=== PATIENT | male | born 1970 | race Caucasian/White ===

== ENCOUNTER 2017-10-12 17:37 | Emergency (ER) | payer BC ==
[~2017-10-12] VITALS: Ht 175.3 cm; Wt 83.9 kg
--- NOTE | 2017-10-12 17:45 | NUR ---
PRESENTS TO ER C/O CHEST PAIN X 30 MIN [employer] WHILE EATING DINNER. RADIATES TO LEFT ARM. A/OX 4. BREATHING EVEN AND UNLABORED. NO SOB. VITALS STABLE. SAFETY AND COMFORT MEASURES IN PLACE. AWAITING MD ORDERS.
--- NOTE | 2017-10-12 18:00 | NUR ---
NEW IV STARTED ON RAC, 20 G. BLOOD DRAWN AND SENT TO LAB.
[2017-10-12] MEDS ORDERED: ASPIRIN 81 MG TAB.CHEW ONE (18:16)
--- NOTE | 2017-10-12 18:20 | NUR ---
LAB AT BEDSIDE FOR BLOOD DRAW
[2017-10-12 18:24] LABS: BASOPHILS % (AUTO) 0.5 % (0.0-2.0); EOSINOPHILS # (AUTO) 0.4 /CMM (0.0-0.7); EOSINOPHILS % (AUTO) 4.9 % (0.0-6.0); HEMATOCRIT 39 % (33-45); HEMOGLOBIN 13.6 g/dL (11.5-14.8); LYMPHOCYTES # (AUTO) 2.9 /CMM (0.8-4.8); LYMPHOCYTES % (AUTO) 37.1 % (20.0-44.0); MEAN CORPUSCULAR HEMOGLOBIN 31 PG (26.0-33.0); MEAN CORPUSCULAR HGB CONC 35 g/dl (31.0-36.0); MEAN CORPUSCULAR VOLUME 89 fL (82-100); MONOCYTES # (AUTO) 0.7 /CMM (0.1-1.30); MONOCYTES % (AUTO) 8.5 % (2.0-12.0); NEUTROPHILS # (AUTO) 3.9 /CMM (1.8-8.9); PLATELET COUNT (AUTO) 311 /CMM (150-450); RDW COEFFICIENT OF VARIATION 12.5 (11.5-15.0); RED BLOOD CELL COUNT(AUTO) 4.36 MIL/uL (4.0-5.2); WHITE BLOOD COUNT (AUTO) 7.9 K/uL (4.3-11.0)
[2017-10-12] MEDS ORDERED: ASPIRIN 81 MG TAB.CHEW PO ONE (18:30)
[2017-10-12 18:37] LABS: CARBON DIOXIDE 28 mmol/L (21-32); CHLORIDE 102 mmol/L (98-107); GLUCOSE 98 mg/dL (74-106); POTASSIUM 3.8 mmol/L (3.5-5.1); SODIUM SERUM 138 mmol/L (136-145); UREA NITROGEN, BLOOD 16 mg/dL (7-18)
[2017-10-12 18:45] LABS: TROPONIN I < 0.017 ng/mL (0.00-0.056)
--- NOTE | 2017-10-12 18:45 | NUR ---
REPORT GIVEN TO ALONSO ORTIZ FOR MICHELLE.
--- NOTE | 2017-10-12 21:22 | NUR ---
LAB MADE AWARE FOR SECOND TROP LEVEL BLOOD DRAW. WILL F/U
--- NOTE | 2017-10-12 21:22 | NUR ---
PT STABLE CONDITION. VSS NAD.
[2017-10-12 22:20] VITALS: BP 159/104
== END 2017-10-12 22:21 | disposition home or self-care (01) ==
LOC: ER 17:40 → EDSEX 17:40 → ER 22:21
DX: R07.9 Chest pain, unspecified (principal); Z79.82 Long term (current) use of aspirin; Z87.891 Personal history of nicotine dependence
CPT/HCPCS: 36415; 71045; 80048; 84484 ×2; 85025; 93005 ×2; 99285; A4606; Z7610